=== PATIENT | male | born 1955 | race Caucasian/White ===

== ENCOUNTER 2020-12-23 06:16 | Emergency (ER) | payer OTHER, SELFPAY ==
--- NOTE | ~2020-12-23 | CT_ITS ---
EXAMINATION: CT abdomen pelvis w con DATE: 12/23/2020 07:00 INDICATION: Abdominal pain. TECHNIQUE: Computed tomography (CT) of the abdomen and pelvis was performed with 100 mL Omnipaque 350 intravenous contrast. Automated exposure control and iterative reconstruction technique were employe d. The dose-length product was 747.15 mGy-cm. COMPARISON: None. FINDINGS: The visualized portions of the lung bases demonstrate mild atelectasis. No pleural effusion . The heart size is normal. No pericardial effusion. There are pacer wires in right atrium and right ventricle. There are cysts in the liver measuring up to 2.0 cm. There are gallstones in the gallbladd er, which is distended. Gallbladder wall thickening is noted. There is a gallstone in the cystic duct . The spleen, pancreas, adrenal glands, and left kidney are normal. There is a 4 mm cyst in right kid pavan. The prostate is mildly enlarged. There is diverticulosis of the colon without evidence of divert iculitis. The appendix is normal. There are no pathologically enlarged lymph nodes. There is no free intraperitoneal fluid. There is mild thoracolumbar spondylosis. IMPRESSION: 1. Acute cholecystitis. Reviewed, dictated and finalized at location A. IMPRESSION: 1. Acute cholecystitis.
[2020-12-23 06:25] VITALS: BP 115/64; PULSE 50; RESP 18; TEMP 36.7; O2SAT 97
--- NOTE | 2020-12-23 06:34 | ECG_ITS ---
Measurements Intervals [place] Rate: 56 P: 93 DC: 282 QRS: -51 QRSD: 160 T: 9 QT: 441 QTc: 427 Interpretive Statements ELECTRONIC ATRIAL PACEMAKER WITH INHIBITIONI INTRAVENTRICULAR CONDUCTION DELAY INFERIOR INFARCT, AGE INDETERMINATE ABNORMAL ECG Electronically Signed On 12-23-2020 7:15:11 CDT by Cuauhtemoc Coughlin D.O.
--- NOTE | 2020-12-23 06:39 | ED.GENADULT ---
HPI - General Adult General Chief complaint: Abdominal Pain <Dallas Mane MD - Last Filed: 12/23/20 06:41> Stated complaint: ABD PAIN X3HRS <Dallas Mane MD - Last Filed: 12/23/20 06:41> Time Seen by Provider: 12/23/20 06:29 <Dallas Mane MD - Last Filed: 12/23/20 06:41> History of Present Illness HPI narrative: Patient is a 65-year-old gentleman who presents to the emergency department with chief complaint of abdominal pain. The patient reports that this morning he woke up and started having a uncomfortable feeling throughout his abdomen. The patient states it is more in the epigastric region but states it radiates throughout his entire abdomen. Patient states is not improved by anything nor is it worsened by anything reports to really not worsen whenever you palpate his abdomen reports that he had one episode of vomiting reports that he is not had a bowel movement since yesterday which he states is more unusual for him. Patient states that he has had no fever or chills denies diarrhea. <Dallas Mane MD - Last Filed: 12/23/20 06:41> Related Data Home medications: Home Medications Medication Instructions Recorded Confirmed albuterol sulfate INHALATION 12/23/20 benzonatate mg PO 12/23/20 doxycycline hyclate 12/23/20 fluticasone propionate INTRANASAL 12/23/20 ipratropium bromide INTRANASAL 12/23/20 levothyroxine [Synthroid] 12/23/20 pravastatin 12/23/20 testosterone 12/23/20 <Dallas Mane MD - Last Filed: 12/23/20 06:41> Allergies/adverse reactions: Allergies Allergy/AdvReac Type Severity Reaction Status Date / Time No Known Allergies Allergy Unverified 07/16/16 14:34 <Dallas Mane MD - Last Filed: 12/23/20 06:41> Review of Systems Review of Systems: Narrative: A 10 system review of systems was completed on the patient and is negative except for what is stated in the HPI. Nursing and ancillary documentation was reviewed. <Dallas Mane MD - Last Filed: 12/23/20 06:41> PMFSH Past Medical History Medical History: Medical History (Updated 12/23/20 @ 08:26 by Kalyn Delgado MD) Adrenal insufficiency Heart block <Dallas Mane MD - Last Filed: 12/23/20 06:41> Comments Past medical history significant for pituitary adenoma with history of a transsphenoidal resection of his pituitary. Patient also has history of adrenal insufficiency and requires stress dose steroids Social history the patient denies smoking <Dallas Mane MD - Last Filed: 12/23/20 06:41> Exam Narrative: Exam Narrative: GENERAL: Well-appearing, well-nourished, and in no acute distress. HEAD: Normocephalic, atraumatic. EYES: PERRLA and EOMI. ENT: Nares clear, no rhinorrhea or epistaxis. Mucous membranes moist. NECK: Supple. CHEST: Clear to auscultation. No respiratory distress. HEART: Regular rate and rhythm. No murmur heard. Normal peripheral pulses. ABDOMEN: Soft, diffuse mild tenderness, nondistended, normal active bowel sounds. EXTREMITIES: Normal range of motion. No edema. SKIN: Warm, dry, no rash. NEURO: No focal deficits. Alert and oriented x3. PSYCH: Normal mood and affect. <Dallas Mane MD - Last Filed: 12/23/20 06:41> Course Reevaluation(s) Reevaluation #1: I have discussed with patient CT findings and surgeon recommendations. He denies any additional questions at this time. <Kalyn Delgado MD - Last Filed: 12/23/20 17:20> Date: 12/23/20 <Kalyn Delgado MD - Last Filed: 12/23/20 17:20> Time: 07:36 <Kalyn Delgado MD - Last Filed: 12/23/20 17:20> Consultations Consultation #1: I discussed case with Dr. Bear (labs, CT and history). He recommends giving patient a dose of 800 mg IV ibuprofen and zosyn. He will follow up with patient in office on . <Kalyn Delgado MD - Last Filed: 12/23/20 17:20>
[2020-12-23] MEDS: ONDANSETRON INJ 4 MG/2 ML VIAL IV PUSH (06:44)
[2020-12-23] MEDS: SODIUM CHLORIDE 0.9% IV 1,000 ML 999 ML IV CONT (06:44)
[2020-12-23] MEDS: MORPHINE SULFATE (*CRX) 4 MG/ML INJ IV PUSH (06:45)
[2020-12-23 06:48] LABS: Estimated CRCL calculation 63 ml/min; Estimated Glomerular Filt Rate 56
[2020-12-23 06:49] LABS: Basophils Absolute Auto 0.1 K/mm3 (0.0-0.1); Basophils Percent Auto 1.1 % (0.2-1.2); Eosinophils Absolute Auto 0.2 K/mm3 (0-0.3); Eosinophils Percent Auto 1.7 % (0-4.4); Hematocrit 48.6 % (42.0-52.0); Hemoglobin 16.2 g/dL (14.0-18.0); Immature Granulocyte Absolute 0.03 K/mm3 (0.00-0.031); Immature Granulocyte Percent A 0.3 % (0-0.5); Lymphocytes Absolute Auto 2.74 K/mm3 (0.9-3.2); Lymphocytes Percent Auto 30.7 % (18.3-44.2); Mean Corpuscular HGB Conc 33.3 g/dl (32-36); Mean Corpuscular Hemoglobin 31.4 pg (26-34); Mean Corpuscular Volume 94.2 fl (80-100); Mean Platelet Volume 10.7 fl (7.4-10.4); Monocytes Absolute Auto 0.8 K/mm3 (0.1-0.6); Monocytes Percent Auto 8.4 % (2.6-8.5); Neutrophils Absolute Auto 5.2 K/mm3 (1.3-6.7); Neutrophils Percent Auto 57.8 % (45.5-73.1); Platelet Count Result 174 k/mm3 (150-375); Red Blood Count 5.16 M/mm3 (4.6-6.20); Red Cell Distribution Width 12.3 % (11.5-14.5); White Blood Count 8.9 K/mm3 (4.5-10.0)
[2020-12-23 06:58] LABS: Prothrombin Time 13.3 Seconds (11.1-14.7)
[2020-12-23 06:59] LABS: Lactic Acid Reflex 1.7 mmol/L (0.7-2.1); Partial Thromboplastin Time 26.4 SECONDS (22.3-36.8)
[2020-12-23 07:00] LABS: Alanine Aminotransferase 23 U/L (4-50); Albumin Level 4.5 g/dL (3.5-5.1); Alkaline Phosphatase 50 U/L (38-126); Anion Gap 9 mmol/L (8-16); Aspartate Amino Transferase 29 U/L (17-59); Bilirubin,Total 0.7 mg/dL (0.2-1.3); Blood Urea Nitrogen 21 mg/dL (9-20); Calcium 9.6 mg/dL (8.4-10.2); Carbon Dioxide 32 mmol/L (22-30); Chloride 101 mmol/L (98-107); Estimated CRCL calculation 68 ml/min; Estimated Glomerular Filt Rate > 60; Glucose 127 mg/dL (75-110); Lipase 136 U/L (23-300); Potassium 3.2 mmol/L (3.4-5.0); Sodium 142 mmol/L (137-145)
[2020-12-23 07:11] LABS: Troponin I < 0.012 ng/mL (0.000-0.034)
[2020-12-23 07:25] VITALS: BP 114/70; PULSE 54; RESP 12; O2SAT 99
[2020-12-23 07:29] LABS: Add Urine Microscopic? NO; Appearance Urine Clear (Clear); Bilirubin Urine Negative (Negative); Blood Urine Negative (Negative); Color Urine Yellow (Yellow); Glucose Urine UA Negative (Negative); Ketones Urine Negative (Negative); Leukocyte Esterase Ur Negative LEU/UL (Negative); Nitrate Urine Negative (Negative); Protein Urine Negative (Negative); Urobilinogen Urine Negative mg/dL (<2.0)
[2020-12-23 07:32] LABS: Specific Grav Ur 1.051 (1.001-1.035)
[2020-12-23] MEDS: IBUPROFEN IV 800 MG/200 ML 800 MG/200 ML BAG 400 MG IVPB (07:46)
[2020-12-23 07:53] VITALS: BP 115/73; PULSE 50; RESP 12; O2SAT 99
[2020-12-23 08:45] VITALS: BP 114/74; PULSE 54; RESP 12; O2SAT 98
== END 2020-12-23 08:59 | disposition home or self-care (01) ==
PROVIDERS: Emergency Medicine; Emergency Provider General Practice; PCP Internal Medicine
DX: K80.00 Calculus of gallbladder with acute cholecystitis without obstruction (principal); E27.40 Unspecified adrenocortical insufficiency; E89.3 Postprocedural hypopituitarism; Z95.0 Presence of cardiac pacemaker; I45.9 Conduction disorder, unspecified; R94.31 Abnormal electrocardiogram [ECG] [EKG]
CPT/HCPCS: 36415; 74177; 80053; 81003; 83605; 83690; 84484; 85025; 85610; 85730; 93005; 96361; 96365; 96367; 96375; 99284; J1741; J2270; J2405; J2543; J7030; Q9967